=== PATIENT | male | born 1995 | race Caucasian/White ===

== ENCOUNTER 2016-11-11 22:28 | Emergency (ER) | payer SELFPAY ==
--- NOTE | 2016-11-11 22:50 | ERNOTE ---
Neuro HPI ER Record Presenting Symptoms: other - seizure Time Seen by Provider: 11/11/16 22:35 Source: patient Exam Limitations: no limitations Immunizations: IMMUNIZATION HX Immunizations Up to Date No History of Influenza Vaccine No Hx Pneumococcal Vaccination No Allergies/Adverse Reactions: Allergies Allergy/AdvReac Type Severity Reaction Status Date / Time No Known Allergies Allergy Verified 11/11/16 22:41 Home Medications: HOME MEDICATIONS Lamotrigine [Lamictal] 125 mg PO HS 10/16/13 [Last Taken Unknown] Topiramate [Topamax] 200 mg PO BID 10/16/13 [Last Taken Unknown] lamoTRIgine [Lamictal] 100 mg PO DAILY 10/16/13 [Last Taken Unknown] Divalproex Sodium 250 mg PO HS 11/11/16 [Last Taken Unknown] Divalproex Sodium [Depakote] 500 mg PO DAILY 11/11/16 [Last Taken 11/11/16 21:00 ] - History of Present Illness Narrative: 21 yo male with hx of seizure disorder since age 13 presents after having a seizure in the break room just before starting work. Pt did have some blood from is mouth. Denies loss of bowel or bladder control Onset: sudden onset Severity: mild Review of Systems - Review of Systems Constitutional: Present: other - feeling "shaky" tonight since he woke up. Absent: recent illness EYE: Present: no symptoms reported ENT: Present: no symptoms reported Respiratory: Present: no symptoms reported Cardiology: Present: no symptoms reported Gastrointestinal/Abdominal: Present: no symptoms reported Genitourinary: Present: no symptoms reported Musculoskeletal: Absent: neck pain, joint pain Skin: Absent: lumps Neurological: Present: headache - 11/03. Absent: weakness, numbness Endocrine: Absent: excessive sweating - Patient's Past Medical History Patient History - Medical: Seizures Patient History - Cancer: No Hx of Cancer Patient History - Surgical Procedures: No surgical history - Social History Living Situations: home Smoking Status: Former smoker Have you smoked in the past 12 months: Yes Alcohol Use: occasionally Drug Use: marijuana Physical Exam - Physical Exam General Appearance: Present: wd/wn, alert, no apparent distress Eye Exam: Normal inspection: bilateral, PERRL: bilateral, EOMI: bilateral Ears, Nose, Throat: Present: other - small bite ronda on the right side of the tongue, no bleeding at this time Neck: Present: normal inspection, nontender Respiratory: Present: no respiratory distress, normal breath sounds, no accessory muscle use, chest nontender, lungs clear Cardiovascular/Chest: Present: regular rate, rhythm, no murmur, normal peripheral pulses Gastrointestinal/Abdominal: Present: normal bowel sounds, nontender, nondistended, soft Extremity Exam: Present: normal inspection, non-tender, no edema, normal range of motion Neurological Exam: Present: alert, oriented, normal mood/affect, no motor/ sensory deficits Skin Exam: Present: normal color, warm/dry Lymphatic Exam: Present: no adenopathy [place] Coma Scale - Assess Eye Opening: Spontaneous Motor: Obeys Commands Verbal: Oriented - Total Coma Scale Total: 15 ED Progress - Results and Orders Patient's Lab Results:: I have reviewed the patient's lab results. Results and Orders: Laboratory Tests 11/11/16 11/11/16 23:05 23:05 WBC 6.0 Hgb 15.7 Hct 48.8 Plt Count 230 Sodium 143 H Potassium 4.1 Chloride 105 Carbon Dioxide 23.2 L Anion Gap 18.9 H BUN 16 Creatinine 1.20 Est GFR (Non-Af Amer) 81 BUN/Creatinine Ratio 13.3 Random Glucose 116 H Calcium 9.8 Calcium Adj for Albumin 8.8 Total Bilirubin 0.3 AST 11 ALT 20 Alkaline Phosphatase 61 Total Protein 8.3 H Albumin 4.8 - Vital Signs Patient's Vital Signs:: I have reviewed the patient's vital signs. Vital Signs: Vital Signs 11/11/16 22:31 Temperature 36.1 C L Pulse Rate 94 Respiratory 18 Rate Blood Pressure 134/56 O2 Sat by Pulse 96 Oximetry - Progress/Reassessment Chief Complaint: Seizure Activity Departure Clinical Impression: Seizure disorder - Departure Disposition: Home Follow Up Needed Condition: Good Instructions: Seizure, Adult, [id number] Additional Instructions: rest tonight, drink plenty of fluids. See your regular doctor if not improving
[2016-11-11 22:51] VITALS: BP 114/58
[2016-11-11 23:11] LABS: Hematocrit 48.8 % (42.0-52.0); Hemoglobin 15.7 gm/dL (13.5-18.0); Mean Cell Volume 93.7 fl (78-100); Mean Corpuscular Hemoglobin 30.1 pg (27-31); Mean Corpuscular Hgb Conc 32.2 g/dl (32-36); Neutrophil # 3.6 K/mm3 (1.3-6.0); Neutrophil % 60.7 % (42-75.0); Platelet Count 230 K/mm3 (150-450); Red Blood Count 5.21 M/mm3 (4.7-6.0); Red Cell Distribution Width 12.2 % (11.5-14.0)
[2016-11-11 23:24] LABS: Albumin * 4.8 gm/dl (3.4-5.0); Anion Gap 18.9 mmol/L (6.8-13.8); BUN/Creatinine Ratio 13.3 (9.0-21.6); Bilirubin, Total 0.3 mg/dL (0.0-1.1); Ca. Corrected For Albumin 8.8 mg/dL (8.4-10.2); Calcium * 9.8 mg/dL (7.9-10.9); Carbon Dioxide 23.2 mmol/L (24-32.6); Potassium 4.1 mmol/L (3.4-4.6); Total Protein 8.3 gm/dL (6.2-8.2)
[2016-11-12 00:13] LABS: Urine Bilirubin Negative (NEGATIVE); Urine Ketone Negative (NEGATIVE); Urine Nitrite Negative (NEGATIVE); Urine Protein 15 mg/dL (NEGATIVE); Urine Specific Gravity >=1.030 SP.GR. (1.005-1.030); Urine Urobilinogen Normal (NORMAL)
[2016-11-12 00:14] LABS: Urine Appearance Clear; Urine Bacteria None Seen; Urine Blood Negative /ul (NEGATIVE); Urine Color Pale Yellow; Urine RBC 0-5 /hpf (0-5); Urine WBC 0-5 /hpf (0-5)
== END 2016-11-11 23:56 | disposition home or self-care (01) ==
LOC: ER 22:28
DX: Z87.891 Personal history of nicotine dependence (principal); G40.909 Epilepsy, unspecified, not intractable, without status epilepticus

== ENCOUNTER 2017-07-19 17:45 | Emergency (ER) | payer OTHER ==
[2017-07-19] MEDS ORDERED: LIDOCAINE HCL 20 ML VIAL ONE (18:26)
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
[2017-07-19] MEDS ORDERED: DIPHTH,PERTUSS(ACELL),TET VAC 0.5 ML VIAL IM ONE ×2 (18:59→19:00)
[2017-07-19 19:30] VITALS: BP 123/63
== END 2017-07-19 19:29 | disposition home or self-care (01) ==
LOC: ER 17:45
PROC: 0JQG0ZZ Repair Right Lower Arm Subcutaneous Tissue and Fascia, Open Approach (ICD-10-PCS; principal; 2017-07-19)
DX: S51.011A Laceration without foreign body of right elbow, initial encounter (principal); W26.8XXA Contact with other sharp object(s), not elsewhere classified, initial encounter; Y93.89 Activity, other specified; Y92.63 Factory as the place of occurrence of the external cause; Y99.0 Civilian activity done for income or pay; Z23 Encounter for immunization; F17.200 Nicotine dependence, unspecified, uncomplicated